=== PATIENT | male | born 1985 | race Caucasian/White ===

== ENCOUNTER → 2020-12-05 | Outpatient (CLI) | payer BC | LOC: KOH-I 10:13 | DX: K75.81 Nonalcoholic steatohepatitis (NASH) (principal); K74.60 Unspecified cirrhosis of liver | CPT/HCPCS: 76705 ==

== ENCOUNTER → 2021-06-05 | Outpatient (CLI) | payer BC | LOC: KOH-I 10:22 | DX: K74.60 Unspecified cirrhosis of liver (principal); K75.81 Nonalcoholic steatohepatitis (NASH) | CPT/HCPCS: 76705 ==